=== PATIENT | male | born 1930 | race Caucasian/White ===

== ENCOUNTER 2019-04-18 09:03 | Emergency (ER) | payer MEDICARE, OTHER ==
[~2019-04-18] VITALS: Ht 182.9 cm; Wt 90.9 kg
[2019-04-18 09:50] LABS: BASOPHILS % (AUTO) 0.4 % (0-1); EOSINOPHILS # (AUTO) 0.1 X10'3 (0-0.9); EOSINOPHILS % (AUTO) 1.2 % (0-6); HEMATOCRIT 39.3 % (42.0-52.0); HEMOGLOBIN 13.4 g/dl (14.0-17.9); MEAN CORPUSCULAR HEMOGLOBIN 30.6 PG (27.0-31.0); MEAN CORPUSCULAR VOLUME 90.1 FL (78-98); MEAN PLATELET VOLUME 8.4 FL (7.4-10.4); MONOCYTES # (AUTO) 0.4 X10'3 (0-0.9); NEUTROPHILS # (AUTO) 5.7 X10'3 (1.8-7.7); NEUTROPHILS % (AUTO) 78.4 % (42-75); PLATELET COUNT 165 X10'3 (140-440); RED BLOOD COUNT 4.36 X10'6 (4.70-6.10); RED CELL DISTRIBUTION WIDTH 14.2 % (11.5-14.5); WHITE BLOOD COUNT 7.2 X10'3 (4.5-11.0)
[2019-04-18 09:58] LABS: ALANINE AMINOTRANSFERASE 22 U/L (12-78); ALBUMIN 3.6 G/DL (3.4-5.0); ALKALINE PHOSPHATASE 79 IU/L (46-116); ANION GAP 8 (8-16); ASPARTATE AMINO TRANSFERASE 19 U/L (10-37); BILIRUBIN,TOTAL 0.7 MG/DL (0.1-1.0); BLOOD UREA NITROGEN 13 MG/DL (7-18); BUN/CREATININE RATIO 12.1 (5.4-32.0); CHLORIDE 101 MMOL/L (99-107); CREATININE 1.07 MG/DL (0.60-1.10); GLUCOSE 174 MG/DL (70-104); POTASSIUM 4.2 MMOL/L (3.5-5.1); SODIUM 138 MMOL/L (135-145); TOTAL CARBON DIOXIDE 28.6 MMOL/L (24-32); TOTAL PROTEIN 7.2 G/DL (6.4-8.2); eGFR 66 ML/MIN
[2019-04-18 11:38] LABS: CLARITY,URINE CLEAR (Clear); COLOR,URINE YELLOW (Yellow); GLUCOSE, URINE NEGATIVE (Neg); KETONES,URINE NEGATIVE (Neg); LEUKOCYTE ESTERASE ,URINE NEGATIVE (Neg); NITRITES, URINE NEGATIVE (Neg); OCCULT BLOOD,URINE NEGATIVE (Neg); PH,URINE 7.5 (4.8-8.0); PROTEIN,URINE NEGATIVE (Neg); UROBILINOGEN,URINE 0.2 E.U/dL (0.2-1.0)
[2019-04-18 11:40] LABS: UA COLLECTION TYPE STRAIGHT CATH
[2019-04-18] MEDS ORDERED: ONDA4TAB6 PO (11:47)
[2019-04-18] MEDS ORDERED: ondansetron 4mg rapidly disintigrating tab PO ONE (12:25)
[2019-04-18 12:45] VITALS: BP 154/84
--- NOTE | 2019-04-18 12:45 | NUR ---
awaiting results of D DIMER redraw that was just drawn
== END 2019-04-18 12:52 | disposition home or self-care (01) ==
LOC: ER 09:03
DX: S00.93XA Contusion of unspecified part of head, initial encounter (principal); M25.512 Pain in left shoulder; R42 Dizziness and giddiness; E78.00 Pure hypercholesterolemia, unspecified; I10 Essential (primary) hypertension; K21.9 Gastro-esophageal reflux disease without esophagitis; E11.9 Type 2 diabetes mellitus without complications; M19.90 Unspecified osteoarthritis, unspecified site; Z60.2 Problems related to living alone; Z88.0 Allergy status to penicillin; Z88.8 Allergy status to other drugs, medicaments and biological substances; Z79.899 Other long term (current) drug therapy; W18.39XA Other fall on same level, initial encounter; Y93.89 Activity, other specified; Y92.89 Other specified places as the place of occurrence of the external cause; Y99.8 Other external cause status
CPT/HCPCS: 36415; 70450; 71045; 72125; 80053; 81003; 85025; 93005; 99284; P9612

== ENCOUNTER 2020-10-25 04:04 | Observation (INO) | payer MEDICARE, MEDICAID, OTHER ==
[~2020-10-25] VITALS: Ht 182.9 cm; Wt 90.9 kg
[~2020-10-25 04:04] MED LIST: ONDA4TAB6 PO
[2020-10-25] MEDS ORDERED: pantoprazole 40 MG vial IV ONE (04:30)
[2020-10-25 04:39] LABS: BASOPHILS # (AUTO) 0.1 X10'3 (0-0.2); BASOPHILS % (AUTO) 0.7 % (0-1); EOSINOPHILS % (AUTO) 0.4 % (0-6); HEMATOCRIT 40.4 % (42.0-52.0); HEMOGLOBIN 13.5 g/dl (14.0-17.9); LYMPHOCYTES # (AUTO) 0.9 X10'3 (1.1-4.8); LYMPHOCYTES % (AUTO) 9.5 % (21-51); MEAN CORPUSCULAR HEMOGLOBIN 28.9 PG (27.0-31.0); MEAN CORPUSCULAR HGB CONC 33.3 g/dL (33.0-36.5); MEAN CORPUSCULAR VOLUME 86.9 FL (78-98); MEAN PLATELET VOLUME 8.7 FL (7.4-10.4); MONOCYTES # (AUTO) 0.3 X10'3 (0-0.9); MONOCYTES % (AUTO) 3.6 % (2-12); NEUTROPHILS # (AUTO) 8.1 X10'3 (1.8-7.7); NEUTROPHILS % (AUTO) 85.8 % (42-75); PLATELET COUNT 175 X10'3 (140-440); RED BLOOD COUNT 4.65 X10'6 (4.70-6.10); RED CELL DISTRIBUTION WIDTH 14.1 % (11.5-14.5); WHITE BLOOD COUNT 9.4 X10'3 (4.5-11.0)
[2020-10-25 04:46] LABS: ALANINE AMINOTRANSFERASE 24 U/L (12-78); ALBUMIN 3.6 G/DL (3.4-5.0); ALBUMIN/GLOBULIN RATIO 0.9 (1.1-1.5); ALKALINE PHOSPHATASE 74 IU/L (46-116); ANION GAP 12 (8-16); ASPARTATE AMINO TRANSFERASE 23 U/L (10-37); BILIRUBIN,TOTAL 0.8 MG/DL (0.1-1.0); BLOOD UREA NITROGEN 22 MG/DL (7-18); BUN/CREATININE RATIO 19.1 (5.4-32.0); CALCIUM 8.9 MG/DL (8.5-10.1); CHLORIDE 99 MMOL/L (99-107); CREATININE 1.15 MG/DL (0.60-1.10); GLUCOSE 206 MG/DL (70-104); POTASSIUM 3.3 MMOL/L (3.5-5.1); SODIUM 139 MMOL/L (135-145); TOTAL CARBON DIOXIDE 28.1 MMOL/L (24-32); TOTAL PROTEIN 7.5 G/DL (6.4-8.2); eGFR 60 ML/MIN
[2020-10-25 04:49] LABS: LIPASE 75 U/L (73-393); TROPONIN I < 0.04 NG/ML (0.0-0.05)
[2020-10-25] MEDS ORDERED: iohexol 300mg/ml 100ml inj. ONE (05:01)
[2020-10-25] MEDS ORDERED: normal saline 1000ml 1,000 ML IV ONE (06:30)
[2020-10-25] MEDS ORDERED: ondansetron/PF 4mg/2ml inj IV PRN (07:20)
[2020-10-25] MEDS ORDERED: metoclopramide 5 mg/ml inj IV PRN (07:20)
[2020-10-25] MEDS ORDERED: acetaminophen 325mg tablet PO PRN ×2 (07:20)
[2020-10-25] MEDS ORDERED: magnesium hydroxide 30ml (MOM) UD suspension PO PRN (07:20)
[2020-10-25] MEDS ORDERED: mag hydrox/Alum hydrox/simeth 30ml oral suspension PO PRN (07:20)
[2020-10-25] MEDS ORDERED: morphine 2 MG/ML inj. syringe IV PRN ×2 (07:20)
--- NOTE | 2020-10-25 08:13 | NUR ---
granddaughter Brittney, POA [phone]
[2020-10-25] MEDS ORDERED: METF500T PO (08:26)
[2020-10-25] MEDS ORDERED: [UNRECOGNIZED DRUG - CODE] (08:26)
[2020-10-25] MEDS ORDERED: SIMV-42 PO (08:26)
[2020-10-25] MEDS ORDERED: VIT1CAPS14 PO (08:26)
[2020-10-25] MEDS ORDERED: ASPI-611 PO (08:26)
[2020-10-25] MEDS ORDERED: FLO0.4C PO (08:26)
[2020-10-25] MEDS ORDERED: TRIA1TAB3 PO (08:26)
[2020-10-25] MEDS ORDERED: OMEP-50 PO (08:26)
[2020-10-25] MEDS ORDERED: POTA10TA10 PO (08:26)
[2020-10-25] MEDS ORDERED: CHOL-4 PO (08:26)
[2020-10-25] MEDS ORDERED: GABA600T13 PO (08:26)
[2020-10-25] MEDS: normal saline 1000ml 1,000 ML IV SCH ×2 (08:33→17:29)
[2020-10-25] MEDS ORDERED: LIDOcaine 2% 10ml TOPICAL JELLY (Urojet) MM ONE (09:20)
--- NOTE | 2020-10-25 10:36 | NUR ---
PT REFUSING CARE, TOOK OUT IV AND REFUSING STRAIGHT CATH FOR URINE SAMPLE
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
[2020-10-25 13:51] LABS: CLARITY,URINE CLOUDY (Clear); COLOR,URINE YELLOW (Yellow); GLUCOSE, URINE NEGATIVE (Neg); KETONES,URINE NEGATIVE (Neg); LEUKOCYTE ESTERASE ,URINE NEGATIVE (Neg); NITRITES, URINE NEGATIVE (Neg); OCCULT BLOOD,URINE TRACE-INTACT (Neg); PROTEIN,URINE NEGATIVE (Neg); UROBILINOGEN,URINE 0.2 E.U/dL (0.2-1.0)
[2020-10-25 13:56] LABS: UA COLLECTION TYPE VOIDED
[2020-10-25 13:58] LABS: SQUAMOUS EPITHELIAL CELL,UR FEW /LPF (FEW)
[2020-10-25 14:00] LABS: BACTERIA,URINE 2+ /HPF (Neg); RBC,URINE 0-2 /HPF (0-2)
[2020-10-25] MEDS ORDERED: LORazepam 2 mg/ml vial IV PRN (19:40)
[2020-10-25] MEDS: PEG 400/HYPROMELLOSE/GLYCERIN 15ml bottle EACHEYE SCH (20:00)
[2020-10-25] MEDS: gabapentin 300mg capsule PO SCH (20:02)
[2020-10-26] MEDS: normal saline 1000ml 1,000 ML IV SCH ×2 (03:20→07:45)
--- NOTE | 2020-10-26 06:28 | NUR ---
Problems reprioritized. Patient report given, questions answered & plan of care reviewed with SAMAN SÁNCHEZ.
--- NOTE | 2020-10-26 06:49 | NUR ---
Patient in room [facility] 4009. I have received report from Ayan DAVISON and had the opportunity to ask questions and assume patient care.
[2020-10-26 07:00] VITALS: BP 155/79
[2020-10-26 07:11] LABS: BASOPHILS % (AUTO) 0.5 % (0-1); EOSINOPHILS # (AUTO) 0.2 X10'3 (0-0.9); EOSINOPHILS % (AUTO) 2.9 % (0-6); HEMOGLOBIN 12.7 g/dl (14.0-17.9); LYMPHOCYTES # (AUTO) 1.4 X10'3 (1.1-4.8); LYMPHOCYTES % (AUTO) 18.5 % (21-51); MEAN CORPUSCULAR HEMOGLOBIN 29.4 PG (27.0-31.0); MEAN CORPUSCULAR HGB CONC 33.4 g/dL (33.0-36.5); MEAN PLATELET VOLUME 8.5 FL (7.4-10.4); MONOCYTES % (AUTO) 12.5 % (2-12); NEUTROPHILS % (AUTO) 65.6 % (42-75); PLATELET COUNT 157 X10'3 (140-440); RED BLOOD COUNT 4.32 X10'6 (4.70-6.10); RED CELL DISTRIBUTION WIDTH 14.6 % (11.5-14.5); WHITE BLOOD COUNT 7.6 X10'3 (4.5-11.0)
[2020-10-26 07:31] LABS: ANION GAP 7 (8-16); BLOOD UREA NITROGEN 14 MG/DL (7-18); BUN/CREATININE RATIO 13.3 (5.4-32.0); CALCIUM 8.2 MG/DL (8.5-10.1); CHLORIDE 106 MMOL/L (99-107); CREATININE 1.05 MG/DL (0.60-1.10); GLUCOSE 120 MG/DL (70-104); POTASSIUM 3.3 MMOL/L (3.5-5.1); SODIUM 144 MMOL/L (135-145); TOTAL CARBON DIOXIDE 31.2 MMOL/L (24-32); eGFR 67 ML/MIN
[2020-10-26] MEDS: PEG 400/HYPROMELLOSE/GLYCERIN 15ml bottle EACHEYE SCH (07:36)
[2020-10-26] MEDS: gabapentin 300mg capsule PO SCH (07:36)
[2020-10-26] MEDS ORDERED: aspirin 81mg tablet.DR PO SCH (08:00)
[2020-10-26] MEDS ORDERED: VIT B12 PO SCH (08:00)
[2020-10-26] MEDS ORDERED: triamterene/HCTZ 37.5/25mg tablet PO SCH (08:00)
[2020-10-26] MEDS ORDERED: tamsulosin 0.4mg capsule PO SCH (08:00)
[2020-10-26] MEDS ORDERED: cholecalciferol (vitamin D3) 1,000 unit (25mcg) tablet PO SCH (08:00)
[2020-10-26] MEDS ORDERED: potassium chloride 10mEq ER tablet PO SCH (08:00)
[2020-10-26] MEDS ORDERED: PYRIDOXINE HCL PO SCH (08:00)
[2020-10-26] MEDS ORDERED: atorvastatin 10mg tablet PO SCH (08:00)
[2020-10-26] MEDS ORDERED: [UNRECOGNIZED DRUG - OTHER] PO SCH (08:00)
[2020-10-26] MEDS ORDERED: pantoprazole 40mg Tablet.DR PO SCH (08:00)
[2020-10-26 08:15] LABS: TROPONIN I 0.13 NG/ML (0.0-0.05)
[2020-10-26 09:45] VITALS: BP 147/79
[2020-10-26] MEDS ORDERED: ONDA4TAB6 PO (09:50)
--- NOTE | 2020-10-26 10:04 | NUR ---
Dr Marte aware of patients K+ 3.3 today and did receive his daily K+10Meq no further orders. Dr Marte also aware of troponin levels
--- NOTE | 2020-10-26 12:45 | NUR ---
[phone] # provided by our case managment. Number was a pager and paged for them to call us back. Patients family member Brittney Galicia aware [facility] today.
[2020-10-26 13:18] LABS: HEMOGLOBIN A1C 7.8 % (4.5-6.2)
--- NOTE | 2020-10-26 13:26 | NUR ---
DM Consult: Pt A1C 7.8 appropriate given age. Addendum: 10/26/20 at [address] Amended: Links added.
--- NOTE | 2020-10-26 14:11 | NUR ---
Patients discharge instructions reviewed with Media Consultant from [place]. Patients IV dc'd cannula intact and Tele Dc'd for discharge. Patient was assisted with getting dressed and depends placed on patient. Patient transferred to 1 person assist. Patients imaging technician took patient to vehicle [facility].
[2020-10-27] MEDS ORDERED: metFORMIN 500mg tablet PO SCH (07:00)
== END 2020-10-26 13:00 | disposition home or self-care (01) ==
LOC: ER 04:05 → ED HOLD 07:20 → ORTHO 4S 19:00
PROVIDERS: ADMIT Internal Medicine; ATTEND Internal Medicine
DX: R11.2 Nausea with vomiting, unspecified (principal); Z20.822 Contact with and (suspected) exposure to COVID-19; R50.9 Fever, unspecified; G93.41 Metabolic encephalopathy; E11.40 Type 2 diabetes mellitus with diabetic neuropathy, unspecified; E78.00 Pure hypercholesterolemia, unspecified; E78.5 Hyperlipidemia, unspecified; F03.90 Unspecified dementia, unspecified severity, without behavioral disturbance, psychotic disturbance, mood disturbance, and anxiety; I10 Essential (primary) hypertension; K44.9 Diaphragmatic hernia without obstruction or gangrene; N40.0 Benign prostatic hyperplasia without lower urinary tract symptoms; M19.90 Unspecified osteoarthritis, unspecified site; N39.0 Urinary tract infection, site not specified; Z79.84 Long term (current) use of oral hypoglycemic drugs; Z79.899 Other long term (current) drug therapy; Z79.82 Long term (current) use of aspirin; Z88.0 Allergy status to penicillin
CPT/HCPCS: 36415; 71045; 74177; 80048; 80053; 81001; 82948; 83036; 83605; 83690; 83880; 84484; 85025; 85610; 87040; 87077; 87081; 87088; 87186; 87635; 93005; 96361; 96374; 96375; 99285; C9113; C9803; G0378; J2060; J2270; J2405; J7030; Q9967